=== PATIENT | male | born 1960 | race Caucasian/White ===

== ENCOUNTER 2016-11-30 07:54 | Day surgery (SDC) | payer OTHER ==
[~2016-11-30 07:54] MED LIST: EPINEPHrine 1:1000 1 MG/ML SDV ONE; Lidocaine 1%/Sod Bicarbonate in NS 8.4% 1 ML Syringe IV PRN; Ropivacaine 0.5% 5 MG/ML 30 ML SDV ONE; Sodium Chloride 0.9% 10 ML Syringe FLUSH PRN
[2016-11-30] MEDS ORDERED: fentaNYL 100 MCG/2 ML SDV ONE (08:06)
[2016-11-30] MEDS ORDERED: Midazolam 1 MG/ML 2 ML SDV ONE (08:07)
[2016-11-30] MEDS ORDERED: Lidocaine 1% 2 ML ONE (08:08)
[2016-11-30] MEDS: Lactated Ringers 1,000 ML IV SCH ×2 (08:20→12:20)
--- NOTE | 2016-11-30 08:22 | PCM.PREANE ---
Preanesthetic Assessment - Anesthesia/Transfusion/Family Hx Anesthesia History: Prior Anesthesia Without Reaction Family History of Anesthesia Reaction: No Transfusion History: No Prior Transfusion(s) - Review of Systems General: No Symptoms Pulmonary: No Symptoms Cardiovascular: No Symptoms Gastrointestinal: No symptoms Neurological: No Symptoms Other: Reports: None - Physical Assessment NPO Status Date: 11/29/16 NPO Status Time: 08:30 Pulse: 51 O2 Sat by Pulse Oximetry: 96 Respiratory Rate: 16 Blood Pressure: 145/75 Temperature: 36.1 C Height: 1.85 m Weight: 124.738 kg ASA Class: 2 Mental Status: Alert & Oriented x3 Airway Class: Mallampati = 1 Dentition: Reports: Normal Dentition, Broken Tooth/Teeth (back top right) Thyro-Mental Finger Breadths: 3 Mouth Opening Finger Breadths: 3 ROM/Head Extension: Full Lungs: Clear to auscultation, Normal respiratory effort Cardiovascular: Regular Rate, Regular Rhythm, No Murmurs - Lab Values: Laboratory Last Values MRSA (PCR) Negative 11/28/16 09:46 - Imaging/EKG Impressions: EKG SR with Left atrial abnormalities - Allergies Allergies/Adverse Reactions: Allergies Allergy/AdvReac Type Severity Reaction Status Date / Time No Known Allergies Allergy Verified 11/29/16 14:42 - Anesthesia Plan Pre-Op Medication Ordered: None - Acknowledgements Anesthesia Type Planned: General Anesthesia, Regional Block (right interscalene block for post-op pain control) Pt an Appropriate Candidate for the Planned Anesthesia: Yes Alternatives and Risks of Anesthesia Discussed w Pt/Guardian: Yes Pt/Guardian Understands and Agrees with Anesthesia Plan: Yes PreAnesthesia Questionnaire - Past Health History Medical/Surgical History: Denies Medical/Surgical History HEENT History: Reports: None Cardiovascular History: Reports: None Respiratory History: Reports: None Gastrointestinal History: Reports: None, GERD Genitourinary History: Reports: None DELIVERY ARCHITECT History: Reports: None Musculoskeletal History: Reports: Other (see below) Other Musculoskeletal History: biceps tendinitis, R shoulder sprain, R supraspintus tear, knee surgery Neurological History: Reports: None Psychiatric History: Reports: None Endocrine/Metabolic History: Reports: None Hematologic History: Reports: None Immunologic History: Reports: None Oncologic (Cancer) History: Reports: None Dermatologic History: Reports: None - Past Surgical History Head Surgeries/Procedures: Reports: None - SUBSTANCE USE Smoking Status *Q: Never Smoker Second Hand Smoke Exposure: No Days Per Week of Alcohol Use: 0 Number of Drinks Per Day: 0 Total Drinks Per Week: 0 Recreational Drug Use History: No - HOME MEDS Home Medications: Home Meds Cyclobenzaprine [Flexeril] 10 mg PO TID PRN #40 tablet 11/30/16 [Rx] Hydrocodone/Acetaminophen [[place] 5-325 Tablet] 1 - 2 each PO Q6H PRN #40 tablet 11/30/16 [Rx] - CURRENT (IN HOUSE) MEDS Current Meds: Current Medications Lactated Ringer's (Ringers, Lactated) 1,000 mls @ 125 mls/hr IV ASDIRECTED ANABEL Stop: 11/30/16 23:00 Lidocaine/Sodium Bicarbonate (Buffered Lidocaine 1% In Ns 8.4%) 0.25 ml IV ONETIME PRN PRN Reason: Prior to IV Start Stop: 11/30/16 18:00 Sodium Chloride (Saline Flush) 10 ml FLUSH ASDIRECTED PRN PRN Reason: Keep Vein Open Stop: 11/30/16 18:00 Discontinued Medications Epinephrine HCl (Adrenalin 1:1000) Confirm Administered Dose 1 mg .ROUTE .STK- MED ONE Stop: 11/30/16 07:51 Fentanyl (Sublimaze) Confirm Administered Dose 100 mcg .ROUTE .STK-MED ONE Stop: 11/30/16 08:07 Lidocaine HCl (Xylocaine-Mpf 1%) Confirm Administered Dose 2 mls @ as directed .ROUTE .STK-MED ONE Stop: 11/30/16 08:09 Midazolam HCl (Versed 1 Mg/Ml) Confirm Administered Dose 2 mg .ROUTE .STK-MED ONE Stop: 11/30/16 08:08 Ropivacaine (Naropin 0.5%) Confirm Administered Dose 30 ml .ROUTE .STK-MED ONE Stop: 11/30/16 07:51
[2016-11-30] MEDS ORDERED: Bupivacaine 0.25% 30 ML SDV ONE (08:46)
[2016-11-30] MEDS ORDERED: EPINEPHrine 1:1000 1 MG/ML 30 ML MDV ONE (09:20)
[2016-11-30] MEDS ORDERED: Lactated Ringers 1,000 ML ONE (09:35)
[2016-11-30] MEDS ORDERED: Ondansetron 4 MG/2 ML SDV ONE (09:35)
[2016-11-30] MEDS ORDERED: ceFAZolin 1 GM Vial ONE ×2 (09:35→09:51)
[2016-11-30] MEDS ORDERED: Rocuronium 50 MG/5 ML Vial ONE (09:35)
[2016-11-30] MEDS ORDERED: Propofol 200 MG/20 ML SDV ONE (09:35)
[2016-11-30] MEDS ORDERED: fentaNYL 250 MCG/5 ML SDV ONE (09:35)
[2016-11-30] MEDS ORDERED: fentaNYL 100 MCG/2 ML SDV IVPUSH PRN (10:37)
[2016-11-30] MEDS ORDERED: Ondansetron 4 MG/2 ML SDV IVPUSH PRN (10:37)
[2016-11-30] MEDS ORDERED: HYDROmorphone 0.5 MG/0.5 ML Syringe IVPUSH PRN (11:40)
--- NOTE | 2016-11-30 11:51 | PCM.POSTAN ---
POST ANESTHESIA ASSESSMENT - MENTAL STATUS Mental Status: alert, oriented - VITAL SIGNS Pulse Rate: 70 SaO2: 94 Resp Rate: 19 Blood Pressure: 156/92 Temperature: 36.6 C - RESPIRATORY Respiratory Status: respiratory rate WNL, airway patent, O2 saturation stable, supplemental oxygen - CARDIOVASCULAR CV Status: pulse rate WNL, blood pressure stable - GASTROINTESTINAL GI Status: no symptoms - PAIN Pain Score: 0 - POST OP HYDRATION Hydration Status: adequate & stable
--- NOTE | 2016-11-30 12:38 | PCM.SN ---
- Free Text/Narrative Note: Note: 11/30/2016 1100 151/79 50 98% 12 Surgeon and pt request post-op pain control for right shoulder surgery risk of block failure, facial numbness, site infection, and chronic pain discussed with pt and agreed to proceed. All standard monitors est. EKG, BP, Pulse Ox, 2ml O2, and 2ml versed, 2ml fentanyl pre-op dx. right shoulder pain post-op dx right shoulder arthroscopy pt for interscalene block placement all standard monitors est. pt ID time out performed IV sedation 2ml versed, 2ml fentanyl, 2L NC O2, sterile prep and drape of right neck and shoulder U/S placed with visualization of brachial plexus from clavicle to cricoid local skin infiltration 22ga. Stimplex A insulated needle visualized at brachial plexus nerve stimulator at .9 Mila Amps stop at .34 Mila Amps with good bicep twitch with 1ml NaCl and lose of twitch neg aspirations every 5ml of 0.5% ropivacaine and 1:200,000 epi total of 30ml injected all done with U/S guidance needle withdrawn no complications noted pt tolerated procedure well block settling in start procedure at 0848 end procedure at 0854 126/77 52 96% 15
[2016-11-30 15:02] VITALS: BP 124/69
--- NOTE | 2016-12-06 20:48 | PCM.OPNOTE ---
- General Post-Op/Procedure Note Date of Surgery/Procedure: 11/30/16 Operative Procedure(s): right shoulder video arthroscopy with rotator cuff repair, biceps tenotomy, and subacromial decompression Pre Op Diagnosis: right shoulder rotator cuff tear with biceps tendinopathy and subacromial impingement Post-Op Diagnosis: Same Anesthesia Technique: General ET tube, Regional block Primary Surgeon: Harjeet Gaines Anesthesia Provider: Garfield Juan Repairer Screen Crusher: Kiki Brand EBRichard in mLs: 5 Complications: None Condition: Good
--- NOTE | 2016-12-06 21:31 | OR ---
DATE OF OPERATION: 11/30/2016 SURGEON: Harjeet Gaines MD OPERATION PERFORMED: Right shoulder video arthroscopy, rotator cuff repair, biceps tenotomy, and subacromial decompression. PREOPERATIVE DIAGNOSIS: Right shoulder rotator cuff tear with biceps tendinopathy and subacromial impingement. POSTOPERATIVE DIAGNOSIS: Right shoulder rotator cuff tear with biceps tendinopathy, and subacromial impingement. ANESTHESIA: General endotracheal intubation with supraclavicular block. ANESTHESIA PROVIDER: Garfield Juan CRNA. SPORTS INTERN: Kiki Brand PA-C. ESTIMATED BLOOD LOSS: Less than 5 mL. COMPLICATIONS: None. CONDITION: Stable. DESCRIPTION OF PROCEDURE: The patient was identified in the preop holding area. Proper site was marked and identified by the surgeon. The patient was taken back to the operating theater, where after adequate anesthesia, the patient was placed in the lazy left lateral decubitus position. A wedge was placed posteriorly. All bony prominences were well padded. Right upper extremity was then sterilely prepped and draped in the usual sterile fashion. OR time-out was performed. The patient received 2 g IV Ancef and 12 pounds of traction was applied to the right upper extremity. Standard posterior portal incision was made. Scope trocar was introduced in glenohumeral joint. At this time, it was found be in adequate position. Spinal needle was used for creation of anterior portal. Biceps tendon was identified, which showed significant fraying as well as synovitis. There was no chondromalacia noted at the humeral head or the glenoid. There was noted to be a supraspinatus tear. The rest of the footprint was intact. The subscapularis tendon was intact. At this time, it was decided that secondary to the large amount of damage and synovitis as well as irreparable damage to the biceps tendon that it could not be tenodesed at this time. As much as the labrum and the biceps tendon was taken and a tenotomy was performed along with resection of the labral rim and this was debrided. At this time, it was found to be adequately released and was cut up in the groove. At this time, the scope was placed in subacromial space. A limited subacromial bursectomy was performed. The rotator cuff supraspinatus tear was noted. There was noted to be a medium size tear. At this time, there was noted to be a type 2/3 acromion and this was resected down to a smooth surface using a 4-0 darrin. Good bony bleeding bed was then made using the darrin for repair of the tendon. Next, one 4.75 SwiveLock anchor was placed medially, and 2 limbs of FiberWire and 2 limbs of FiberTape were then passed through the tendon. The 2 limbs of FiberWire were then tied for medial row repair and then the 2 strands of FiberTape were brought out laterally and another 4.75 mm Arthrex SwiveLock anchor was placed out laterally for a double-row repair and it was found to have adequate watertight repair with good samaritan of the footprint. At this time, excess saline was drained from the shoulder. A 3-0 nylon simple suture was used for closure of the skin. The patient was placed in a pillow sling and sterile dressing and tolerated the procedure well. MIMI /[id number]
== END 2016-11-30 14:35 | disposition home or self-care (01) ==
LOC: JD.SDS 07:54
PROVIDERS: ATTEND Orthopaedic Surgery
PROC: 0LM14ZZ Reattachment of Right Shoulder Tendon, Percutaneous Endoscopic Approach (ICD-10-PCS; principal; 2016-11-30)
PROC: 0RNJ4ZZ Release Right Shoulder Joint, Percutaneous Endoscopic Approach (ICD-10-PCS; 2016-11-30)
PROC: 0RBJ4ZZ Excision of Right Shoulder Joint, Percutaneous Endoscopic Approach (ICD-10-PCS; 2016-11-30)
DX: M75.101 Unspecified rotator cuff tear or rupture of right shoulder, not specified as traumatic (principal); M75.21 Bicipital tendinitis, right shoulder; M75.41 Impingement syndrome of right shoulder; S46.811A Strain of other muscles, fascia and tendons at shoulder and upper arm level, right arm, initial encounter
CPT/HCPCS: 29822; 29826; 29827; 87641; J0171; J0690; J2250; J2405; J2795; J3010; J7120; 01630; 64415; J2704; J3490

== ENCOUNTER 2019-08-20 06:00 | Inpatient (IN) | payer OTHER ==
--- NOTE | 2019-08-19 13:22 | PCM.PREANE ---
Preanesthetic Assessment - Anesthesia/Transfusion/Family Hx Anesthesia History: Prior Anesthesia Without Reaction Family History of Anesthesia Reaction: No Transfusion History: No Prior Transfusion(s) Intubation History: Unknown - Review of Systems General: No Symptoms Pulmonary: No Symptoms Cardiovascular: No Symptoms Gastrointestinal: No Symptoms (GERD on occasion) Neurological: No Symptoms Other: Reports: None - Physical Assessment NPO Status Date: 08/19/19 NPO Status Time: 19:00 Vital Signs: HR:54 BP:155/98 SAT:96% Temp:97.0 Resp:16 Height: 1.57 m Weight: 130 kg ASA Class: 2 Mental Status: Alert & Oriented x3 Airway Class: Mallampati = 2 Dentition: Reports: Normal Dentition, [place](s) Thyro-Mental Finger Breadths: 3 Mouth Opening Finger Breadths: 3 ROM/Head Extension: Full Lungs: Clear to Auscultation, Normal Respiratory Effort Cardiovascular: Regular Rate, Regular Rhythm, No Murmurs - Lab Values: All labs reviewed and noted and within acceptable ranges to proceed with scheduled procedure. - Imaging/EKG Impressions: CXR: negative EKG: SB rate=52, with nonspecific intraventricular conduction delay - Allergies Allergies/Adverse Reactions: Allergies Allergy/AdvReac Type Severity Reaction Status Date / Time No Known Allergies Allergy Verified 08/19/19 14:57 - Anesthesia Plan Pre-Op Medication Ordered: Other (Pre-Op Meds: lyrica, tylenol, oxycontin all p.o. at 0635) - Acknowledgements Anesthesia Type Planned: Spinal (With Right Adductor canal block under US guidance for post operative pain control requested by Dr. 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: Reports: None Musculoskeletal History: Reports: Other (See Below) Other Musculoskeletal History: biceps tendinitis, R shoulder sprain, R supraspintus tear, knee surgery Neurological History: Reports: None Psychiatric History: Reports: None Endocrine/Metabolic History: Reports: None Hematologic History: Reports: None Immunologic History: Reports: None Oncologic (Cancer) History: Reports: None Dermatologic History: Reports: None - Past Surgical History Musculoskeletal Surgical History: Reports: Knee Replacement - SUBSTANCE USE Smoking Status *Q: Never Smoker Second Hand Smoke Exposure: No Recreational Drug Use History: No - HOME MEDS Home Medications: Home Meds Cholecalciferol (Vitamin D3) [Vitamin D3] 5,000 unit PO DAILY 08/19/19 [History] - CURRENT (IN HOUSE) MEDS Current Meds: Current Medications Acetaminophen (Tylenol) 975 mg PO ONETIME ANABEL Stop: 08/20/19 12:00 Oxycodone HCl (Oxycontin) 10 mg PO ONETIME ANABEL Stop: 08/20/19 12:00 Pregabalin (Lyrica) 50 mg PO ONETIME ANABEL Stop: 08/20/19 12:00
[~2019-08-20 06:00] MED LIST changes: +Acetaminophen 325 MG Tab PO SCH; +EPINEPHrine 1 MG/ML SDV ONE; -EPINEPHrine 1:1000 1 MG/ML SDV ONE; +Lactated Ringers 1,000 ML IV SCH; +Lidocaine 1%/Sod Bicarbonate in NS 8.4% 1 ML Syringe IDERM PRN; -Lidocaine 1%/Sod Bicarbonate in NS 8.4% 1 ML Syringe IV PRN; +Pregabalin 25 MG Cap PO SCH; +oxyCODONE ER 10 MG TAB.ER PO SCH
[2019-08-20] MEDS ORDERED: Phenylephrine/Normal Saline 100 MCG/ML 10 ML Syringe ONE (06:20)
[2019-08-20] MEDS ORDERED: Lidocaine 1% 6 ML ONE ×2 (06:20→07:23)
[2019-08-20] MEDS ORDERED: Ondansetron 4 MG/2 ML SDV ONE (06:20)
[2019-08-20] MEDS ORDERED: Lactated Ringers 2,000 ML ONE (06:20)
[2019-08-20] MEDS ORDERED: Ketorolac 30 MG/ML SDV ONE (06:20)
[2019-08-20] MEDS ORDERED: ceFAZolin 1 GM Vial ONE ×2 (06:20→10:44)
[2019-08-20] MEDS ORDERED: Midazolam 1 MG/ML 2 ML SDV ONE (06:21)
[2019-08-20] MEDS ORDERED: Ketamine 500 mg/10 ML MDV ONE (06:21)
[2019-08-20] MEDS ORDERED: Propofol 200 MG/20 ML SDV ONE ×4 (06:21→09:50)
[2019-08-20] MEDS ORDERED: fentaNYL 100 MCG/2 ML SDV ONE ×2 (06:21→09:58)
[2019-08-20] MEDS ORDERED: Cyclobenzaprine 10 MG Tab PO PRN (06:41)
[2019-08-20] MEDS ORDERED: Morphine 2 MG/ML Syringe IVPUSH PRN (06:42)
[2019-08-20] MEDS ORDERED: Bisacodyl 5 MG Tab PO PRN (06:42)
[2019-08-20] MEDS ORDERED: Magnesium Hydroxide 400 MG/5 ML Susp 30 ML Cup PO PRN (06:42)
[2019-08-20] MEDS ORDERED: Ondansetron 4 MG/2 ML SDV IVPUSH PRN ×2 (06:42→07:47)
[2019-08-20] MEDS ORDERED: Naloxone 0.4 MG/ML SDV IVPUSH PRN (06:42)
[2019-08-20] MEDS ORDERED: Sennosides 8.6 MG Tab PO PRN (06:42)
[2019-08-20] MEDS ORDERED: Famotidine 20 MG Tab PO SCH (06:45)
[2019-08-20] MEDS ORDERED: ceFAZolin 2 GM in Premix Bag 1 BAG IV SCH (06:45)
[2019-08-20] MEDS ORDERED: Albuterol 0.083% 2.5 MG/3 ML Neb Soln NEB PRN (07:47)
[2019-08-20] MEDS ORDERED: ePHEDrine 50 MG/ML SDV IVPUSH PRN (07:47)
[2019-08-20] MEDS ORDERED: fentaNYL 100 MCG/2 ML SDV IVPUSH PRN (07:47)
[2019-08-20] MEDS ORDERED: diphenhydrAMINE 50 MG/ML SDV IVPUSH PRN (07:47)
[2019-08-20] MEDS ORDERED: HYDROmorphone 0.5 MG/0.5 ML Syringe IVPUSH PRN (07:47)
[2019-08-20] MEDS: Bupivacaine 0.25% 10 ML SDV ONE ×2 (07:48→10:22)
[2019-08-20] MEDS: Iodine/Sodium Iodide 2% Tincture 30 ML Bottle ONE ×2 (07:49→10:15)
[2019-08-20] MEDS: ceFAZolin 1 GM Vial ONE ×3 (07:49→10:19)
[2019-08-20] MEDS: Morphine 8 MG, EPINEPHrine 0.3 MG, Cefuroxime 750 MG, Ketorolac 30 MG, Sodium Chloride ... PRN ×10 (07:50→10:22)
[2019-08-20] MEDS: Vancomycin 1 GM SDV ONE ×2 (07:50→10:26)
[2019-08-20] MEDS ORDERED: Phenylephrine 1 MG in Sodium Chloride 0.9% 10 ML IV SCH (08:00)
[2019-08-20] MEDS ORDERED: HYDROmorphone 0.5 MG/0.5 ML Syringe ONE (09:42)
--- NOTE | 2019-08-20 11:18 | PCM.POSTAN ---
POST ANESTHESIA ASSESSMENT - MENTAL STATUS Mental Status: Alert - VITAL SIGNS Vital Signs: Last Vital Signs Temp 36.3 C 08/20/19 11:03 Pulse 54 L 08/20/19 06:10 Resp 14 08/20/19 11:15 BP 113/76 08/20/19 11:15 Pulse Ox 94 L 08/20/19 11:15 - RESPIRATORY Respiratory Status: Respiratory Rate WNL, Airway Patent, O2 Saturation Stable - CARDIOVASCULAR CV Status: Pulse Rate WNL, Blood Pressure Stable - GASTROINTESTINAL GI Status: No Symptoms - POST OP HYDRATION Hydration Status: Adequate & Stable
--- NOTE | 2019-08-20 11:24 | PCM.SN ---
- Free Text/Narrative Note: Right selective femoral nerve block at the adductor canal for post-procedure pain control under US guidance requested by Dr. Gaines. Time Out: 1134 Start: 1134 End: 1141 Chart reviewed. Consent signed. Questions answered. Appropriate monitors applied. Time out performed. Right mid-shaft femur identified with ultrasound, scanning medially of femur, the femoral artery in the adductor canal visualized , and the femoral nerve located laterally to the artery. The skin was prepped lateral to the ultrasound probe with chlorahexadine times two. The 21ga 4 insulated block needle was inserted under direct ultrasound guidance into the adductor canal. 25mL of 0.5% ropivacaine with 1:200,000 epinephrine was injected circumferentially around the nerve with intermittent negative aspiration noted. Patient tolerated the procedure well. Sterile technique noted along with sterile gloves, mask, and sterile probe cover. See picture on progress note and vital signs on nurses notes. Block completed in PACU. Amara Winston CRNA
--- NOTE | 2019-08-20 13:48 | CR ---
Right knee: AP and lateral views of the right knee were obtained. Comparison: No previous knee exam. Knee prosthesis is seen. Components are aligned. Soft tissue air is noted from the surgical procedure. Underlying bony structures are intact. Impression: 1. Satisfactory postop radiographic appearance of recently placed right knee prosthesis. Diagnostic code #2 This report was dictated in [place] Standard Time
[2019-08-20] MEDS: ceFAZolin 1 GM in Premix Bag 1 BAG IV SCH ×2 (14:31→22:42)
[2019-08-20] MEDS: ceFAZolin 2 GM in Premix Bag 1 BAG IV SCH ×2 (14:32→22:42)
[2019-08-20] MEDS: Acetaminophen/oxyCODONE 325-5 MG Tab PO PRN ×3 (14:36→22:49)
[2019-08-20] MEDS: Docusate Sodium 100 MG Cap PO SCH (20:33)
[2019-08-20] MEDS: Famotidine 20 MG Tab PO SCH (20:33)
[2019-08-20] MEDS: Ketorolac 15 MG/ML SDV IVPUSH PRN (22:41)
[2019-08-21] MEDS: ceFAZolin 1 GM in Premix Bag 1 BAG IV SCH (06:19)
[2019-08-21] MEDS: Ketorolac 15 MG/ML SDV IVPUSH PRN (06:19)
[2019-08-21] MEDS: ceFAZolin 2 GM in Premix Bag 1 BAG IV SCH (06:19)
[2019-08-21] MEDS: Acetaminophen/oxyCODONE 325-5 MG Tab PO PRN ×2 (06:31→11:16)
--- NOTE | 2019-08-21 07:08 | PCM48HPAN ---
Post Anesthesia Note - EVALUATION WITHIN 48HRS OF ANESTHETIC Vital Signs in Normal Range: Yes Patient Participated in Evaluation: Yes Respiratory Function Stable: Yes Airway Patent: Yes Cardiovascular Function Stable: Yes Hydration Status Stable: Yes Pain Control Satisfactory: Yes Nausea and Vomiting Control Satisfactory: Yes Mental Status Recovered: Yes Vital Signs: Last Vital Signs Temp 37.0 C 08/21/19 04:21 Pulse 60 08/21/19 04:21 Resp 18 08/21/19 04:21 BP 120/77 08/21/19 04:21 Pulse Ox 90 L 08/21/19 04:21
[2019-08-21] MEDS ORDERED: Cholecalciferol (Vitamin D3) 5,000 UNIT Tab PO SCH (09:00)
[2019-08-21] MEDS ORDERED: Aspirin 325 MG Tab.EC PO SCH (09:00)
[2019-08-21 09:03] VITALS: BP 133/58; PULSE 72
[2019-08-21] MEDS: Famotidine 20 MG Tab PO SCH (09:18)
[2019-08-21] MEDS: Docusate Sodium 100 MG Cap PO SCH (09:19)
--- NOTE | 2019-08-21 13:17 | PCM.SURGPN ---
- General Info Date of Service: 08/21/19 POD#: 1 Functional Status: Reports: Pain Controlled, Tolerating Diet, Ambulating, Urinating, Incentive Spirometry, Other (The pt states he is doing well.) - Patient Data Vitals - Most Recent: Last Vital Signs Temp 98.1 F 08/21/19 08:53 Pulse 72 08/21/19 08:53 Resp 16 08/21/19 08:53 BP 133/58 L 08/21/19 08:53 Pulse Ox 96 08/21/19 08:53 Weight - Most Recent: 294 lb 6.4 oz I&O - Last 24 Hours: Intake & Output 08/20/19 08/21/19 08/21/19 22:59 06:59 14:59 Intake Total 830 1650 240 Output Total 0 300 Balance 830 1350 240 Lab Results Last 24 Hrs: Laboratory Results - last 24 hr 08/21/19 08/21/19 Range/Units 06:50 06:50 WBC 6.67 (4.23-9.07) K/mm3 RBC 3.78 L (4.63-6.08) M/mm3 Hgb 11.6 L D (13.7-17.5) gm/dl Hct 36.0 L (40.1-51.0) % MCV 95.2 H D (79.0-92.2) fl MCH 30.7 (25.7-32.2) pg MCHC 32.2 (32.2-35.5) g/dl RDW Std Deviation 41.2 (35.1-43.9) fL Plt Count 165 (163-337) K/mm3 MPV 11.0 (9.4-12.3) fl Sodium 137 (136-145) mEq/L Potassium 4.1 (3.5-5.1) mEq/L Chloride 101 (98-107) mEq/L Carbon Dioxide 30 (21-32) mEq/L Anion Gap 10.1 (5-15) BUN 25 H (7-18) mg/dL Creatinine 1.3 (0.7-1.3) mg/dL Est Cr Clr Drug Dosing 67.44 mL/min Estimated GFR (MDRD) 56 (>60) mL/min BUN/Creatinine Ratio 19.2 H (14-18) Glucose 129 H (80-115) mg/dL Calcium 8.2 L (8.5-10.1) mg/dL Total Bilirubin 1.7 H (0.2-1.0) mg/dL AST 21 (15-37) U/L ALT 16 (16-63) U/L Alkaline Phosphatase 65 (46-116) U/L Total Protein 5.7 L (6.4-8.2) g/dl Albumin 2.8 L (3.4-5.0) g/dl Globulin 2.9 gm/dL Albumin/Globulin Ratio 1.0 (1-2) Med Orders - Current: Current Medications Albuterol (Proventil Neb Soln) 2.5 mg NEB ONETIME PRN PRN Reason: bronchodilation Aspirin (Ecotrin) 325 mg PO BID [facility] Last Admin: 08/21/19 09:20 Dose: 325 mg Bisacodyl (Dulcolax) 5 mg PO DAILY PRN PRN Reason: Constipation Cholecalciferol (Vitamin D3) 5,000 unit PO DAILY [facility] Last Admin: 08/21/19 09:19 Dose: 5,000 unit Cyclobenzaprine HCl (Flexeril) 10 mg PO TID PRN PRN Reason: Spasms Diphenhydramine HCl (Benadryl) 25 mg IVPUSH Q6H PRN PRN Reason: pruritis Docusate Sodium (Colace) 100 mg PO BID [facility] Last Admin: 08/21/19 09:19 Dose: 100 mg Famotidine (Pepcid) 20 mg PO Q12H [facility] Last Admin: 08/21/19 09:18 Dose: 20 mg Ketorolac Tromethamine (Toradol) 15 mg IVPUSH Q6H PRN PRN Reason: Pain Last Admin: 08/21/19 06:19 Dose: 15 mg Magnesium Hydroxide (Milk Of Magnesia) 30 ml PO BID PRN PRN Reason: Constipation Morphine Sulfate (Morphine) 2 mg IVPUSH Q2H PRN PRN Reason: Breakthrough Pain Naloxone HCl (Narcan) 0.1 mg IVPUSH Q5M PRN PRN Reason: Oversedation Ondansetron HCl (Zofran) 4 mg IVPUSH Q6H PRN PRN Reason: Nausea/Vomiting Oxycodone/Acetaminophen (Percocet 325-5 Mg) 1 - 2 tab PO Q4H PRN PRN Reason: Pain Last Admin: 08/21/19 11:16 Dose: 2 tab Senna (Senna) 8.6 mg PO BID PRN PRN Reason: Constipation Discontinued Medications Acetaminophen (Tylenol) 975 mg PO ONETIME [facility] Stop: 08/20/19 12:00 Last Admin: 08/20/19 06:17 Dose: 975 mg Bupivacaine HCl (Sensorcaine-Mpf 0.25%) Confirm Administered Dose 30 ml .ROUTE .STK-MED ONE Stop: 08/20/19 06:10 Last Admin: 08/20/19 10:22 Dose: 30 ml Cefazolin Sodium (Ancef) Confirm Administered Dose 2 gm .ROUTE .STK-MED ONE Stop: 08/20/19 06:10 Last Admin: 08/20/19 10:19 Dose: 2 gm Cefazolin Sodium (Ancef) Confirm Administered Dose 3 gm .ROUTE .STK-MED ONE Stop: 08/20/19 06:21 Cefazolin Sodium (Ancef) Confirm Administered Dose 3 gm .ROUTE .STK-MED ONE Stop: 08/20/19 10:45 Morphine Sulfate 8 mg/Epinephrine HCl 0.3 mg/Cefuroxime Sodium 750 mg/Ketorolac Tromethamine 30 mg/Sodium Chloride 27.9 ml 0 mg .XX ASDIRECTED PRN PRN Reason: Other Stop: 08/20/19 12:00 Last Admin: 08/20/19 10:22 Dose: 788.3 mg Ephedrine Sulfate (Ephedrine Sulfate) 5 mg IVPUSH ASDIRECTED PRN PRN Reason: Hypotension Stop: 08/20/19 12:00 Epinephrine HCl (Adrenalin) Confirm Administered Dose 1 mg .ROUTE .STK-MED ONE Stop: 08/19/19 13:52 Famotidine (Pepcid) 20 mg PO Q12H [facility] Last Admin: 08/20/19 15:48 Dose: Not Given Fentanyl (Sublimaze) Confirm Administered Dose 100 mcg .ROUTE .STK-MED ONE Stop: 08/20/19 06:22 Fentanyl (Sublimaze) 50 mcg IVPUSH Q5M PRN PRN Reason: Pain Stop: 08/20/19 12:00 Fentanyl (Sublimaze) Confirm Administered Dose 100 mcg .ROUTE .STK-MED ONE Stop: 08/20/19 09:59 Hydromorphone HCl (Dilaudid) 0.5 mg IVPUSH Q15M PRN PRN Reason: Pain (severe 7-10) Stop: 08/20/19 12:00 Hydromorphone HCl (Dilaudid) Confirm Administered Dose 0.5 mg .ROUTE .STK-MED ONE Stop: 08/20/19 09:43 Lactated Ringer's (Ringers, Lactated) 1,000 mls @ 125 mls/hr IV ASDIRECTED [facility] Stop: 08/20/19 23:00 Last Admin: 08/20/19 06:43 Dose: 125 mls/hr Lidocaine HCl (Xylocaine-Mpf 1%) Confirm Administered Dose 6 mls @ as directed .ROUTE .STK-MED ONE Stop: 08/20/19 06:21 Lactated Ringer's (Ringers, Lactated) Confirm Administered Dose 2,000 mls @ as directed .ROUTE .STK-MED ONE Stop: 08/20/19 06:21 Cefazolin Sodium/Dextrose 2 gm (/ Premix) 50 mls @ 100 mls/hr IV Q8H [facility] Stop: 08/20/19 23:14 Last Admin: 08/20/19 15:47 Dose: Not Given Cefazolin Sodium/Dextrose 2 gm (/ Premix) 50 mls @ 100 mls/hr IV Q8H [facility] Stop: 08/21/19 06:59 Last Admin: 08/21/19 06:19 Dose: 100 mls/hr Lidocaine HCl (Xylocaine-Mpf 1%) Confirm Administered Dose 6 mls @ as directed .ROUTE .ST-MED ONE Stop: 08/20/19 07:24 Cefazolin Sodium/Dextrose 1 gm (/ Premix) 50 mls @ 100 mls/hr IV Q8H [facility] Stop: 08/21/19 06:59 Last Admin: 08/21/19 06:19 Dose: 100 mls/hr Phenylephrine HCl 1 mg/ Sodium (Chloride) 10.1 mls @ 1 mls/sec IV TITRATE [facility]; Protocol Stop: 08/20/19 12:00 Iodine (Iodine 2% Mild Tincture) Confirm Administered Dose 30 ml .ROUTE .STK- MED ONE Stop: 08/20/19 06:10 Last Admin: 08/20/19 10:15 Dose: 18 ml Ketamine HCl (Ketalar) Confirm Administered Dose 500 mg .ROUTE .STK-MED ONE Stop: 08/20/19 06:22 Ketorolac Tromethamine (Toradol) Confirm Administered Dose 30 mg .ROUTE .ST- MED ONE Stop: 08/20/19 06:21 Lidocaine/Sodium Bicarbonate (Buffered Lidocaine 1% In Ns 8.4%) 0.25 ml IDERM ONETIME PRN PRN Reason: Prior to IV Start Stop: 08/20/19 18:00 Last Admin: 08/20/19 06:43 Dose: 0.25 ml Midazolam HCl (Versed 1 Mg/Ml) Confirm Administered Dose 2 mg .ROUTE .STK-MED ONE Stop: 08/20/19 06:22 Ondansetron HCl (Zofran) Confirm Administered Dose 4 mg .ROUTE .ST-MED ONE Stop: 08/20/19 06:21 Ondansetron HCl (Zofran) 4 mg IVPUSH ONETIME PRN PRN Reason: Nausea/Vomiting Stop: 08/20/19 12:00 Oxycodone HCl (Oxycontin) 10 mg PO ONETIME [facility] Stop: 08/20/19 12:00 Last Admin: 08/20/19 06:17 Dose: 10 mg Phenylephrine HCl (Phenylephrine In Ns 100 Mcg/Ml) Confirm Administered Dose 1 mg .ROUTE .ST-MED ONE Stop: 08/20/19 06:21 Pregabalin (Lyrica) 50 mg PO ONETIME [facility] Stop: 08/20/19 12:00 Last Admin: 08/20/19 06:17 Dose: 50 mg Propofol (Diprivan 20 Ml) Confirm Administered Dose 400 mg .ROUTE .ST-MED ONE Stop: 08/20/19 06:22 Propofol (Diprivan 20 Ml) Confirm Administered Dose 400 mg .ROUTE .ST-MED ONE Stop: 08/20/19 08:02 Propofol (Diprivan 20 Ml) Confirm Administered Dose 400 mg .ROUTE .STK-MED ONE Stop: 08/20/19 09:05 Propofol (Diprivan 20 Ml) Confirm Administered Dose 200 mg .ROUTE .STK-MED ONE Stop: 08/20/19 09:51 Ropivacaine (Naropin 0.5%) Confirm Administered Dose 30 ml .ROUTE .STK-MED ONE Stop: 08/19/19 13:52 Sodium Chloride (Saline Flush) 10 ml FLUSH ASDIRECTED PRN PRN Reason: Keep Vein Open Stop: 08/20/19 18:00 Tranexamic Acid (Cyklokapron) Confirm Administered Dose 1,000 mg .ROUTE .STK- MED ONE Stop: 08/20/19 06:10 Last Admin: 08/20/19 10:29 Dose: 1,000 mg Vancomycin HCl (Vancomycin) Confirm Administered Dose 1 gm .ROUTE .STK-MED ONE Stop: 08/20/19 06:10 Last Admin: 08/20/19 10:26 Dose: 1 gm - Exam Wound/Incisions: Dressing Dry and Intact General: Alert, Cooperative, No Acute Distress Lungs: Normal Respiratory Effort Extremities: Other (NVS intact for BLE. Troy's negative for BLE. Mod effusion right knee.) Sepsis Event Note - Evaluation Sepsis Screening Result: No Definite Risk - Focused Exam Vital Signs: Vital Signs Temp Pulse Resp BP Pulse Ox 08/21/19 08:53 98.1 F 72 16 133/58 L 96 08/21/19 04:21 98.6 F 60 18 120/77 90 L Date Exam was Performed: 08/21/19 Time Exam was Performed: 13:19 - Problem List Review Problem List Initiated/Reviewed/Updated: Yes - My Orders Last 24 Hours: Active Orders 24 hr Category Date Time Status Ready for Discharge [RC] PER UNIT ROUTINE Care 08/21/19 09:38 Active Aspirin [Ecotrin] Med 08/21/19 09:00 Active 325 mg PO BID Cholecalciferol (Vitamin D3) [Vitamin D3] Med 08/21/19 09:00 Active 5,000 unit PO DAILY Docusate Sodium [Colace] Med 08/20/19 21:00 Active 100 mg PO BID Famotidine [Pepcid] Med 08/20/19 21:00 Active 20 mg PO Q12H Medication Orders Albuterol (Proventil Neb Soln) 2.5 mg NEB ONETIME PRN PRN Reason: bronchodilation Aspirin (Ecotrin) 325 mg PO BID [facility] Last Admin: 08/21/19 09:20 Dose: 325 mg Bisacodyl (Dulcolax) 5 mg PO DAILY PRN PRN Reason: Constipation Cholecalciferol (Vitamin D3) 5,000 unit PO DAILY [facility] Last Admin: 08/21/19 09:19 Dose: 5,000 unit Cyclobenzaprine HCl (Flexeril) 10 mg PO TID PRN PRN Reason: Spasms Diphenhydramine HCl (Benadryl) 25 mg IVPUSH Q6H PRN PRN Reason: pruritis Docusate Sodium (Colace) 100 mg PO BID [facility] Last Admin: 08/21/19 09:19 Dose: 100 mg Admin: 08/20/19 20:33 Dose: 100 mg Famotidine (Pepcid) 20 mg PO Q12H [facility] Last Admin: 08/21/19 09:18 Dose: 20 mg Admin: 08/20/19 20:33 Dose: 20 mg Ketorolac Tromethamine (Toradol) 15 mg IVPUSH Q6H PRN PRN Reason: Pain Last Admin: 08/21/19 06:19 Dose: 15 mg Admin: 08/20/19 22:41 Dose: 15 mg Magnesium Hydroxide (Milk Of Magnesia) 30 ml PO BID PRN PRN Reason: Constipation Morphine Sulfate (Morphine) 2 mg IVPUSH Q2H PRN PRN Reason: Breakthrough Pain Naloxone HCl (Narcan) 0.1 mg IVPUSH Q5M PRN PRN Reason: Oversedation Ondansetron HCl (Zofran) 4 mg IVPUSH Q6H PRN PRN Reason: Nausea/Vomiting Oxycodone/Acetaminophen (Percocet 325-5 Mg) 1 - 2 tab PO Q4H PRN PRN Reason: Pain Last Admin: 08/21/19 11:16 Dose: 2 tab Admin: 08/21/19 06:31 Dose: 2 tab Admin: 08/20/19 22:49 Dose: 2 tab Admin: 08/20/19 18:53 Dose: 2 tab Admin: 08/20/19 14:36 Dose: 2 tab Senna (Senna) 8.6 mg PO BID PRN PRN Reason: Constipation - Assessment Assessment (Free Text/Narrative):: POD#1 - right knee hardware removal and right TKA - Plan Plan (Free Text/Narrative):: 1. Hgb 11.6. 2. 325mg ASA PO BID, frequent mobility, TEDs. 3. Discharge to home today. 4. Outpatient physical therapy. Dr. Gaines evaluated the pt today.
--- NOTE | 2019-08-21 13:19 | PCM.DCSUM1 ---
Discharge Summary - Hospital Course Brief History: Martha is a 59 yo male who underwent right knee hardware removal with TKA with Dr. Gaines on 08-20-2019. The procedure was completed under spinal anesthesia with MAC. The pt tolerated the procedure well and was admitted to the Medical-Surgical Unit. The pt received Ancef quoc-operatively. He participated in P.T. and O.T. and progressed well. He was allowed to WBAT and used a FWW for mobility. The pt's surgical wound was dressed with a WM dressing and remained clean and dry. On POD#1, the pt was started on 325mg ASA BID for VTE prophylaxis. The pt used TEDs and SCDs also. On POD#1, the pt's hemoglobin was 11.6. The pt's hospital course was uneventful. On POD#1, the pt was deemed appropriate for discharge to home with his . - Discharge Data Discharge Date: 08/21/19 Discharge Disposition: Home, Self-Care 01 Condition: Good - Referral to Home Health Primary Care Physician: Gabriel Franks PA-C - Patient Summary/Data Consults: Consultations 08/20/19 06:40 OT Evaluation and Treatment [CONS] Routine PT Evaluation and Treatment [CONS] Routine - Patient Instructions Diet: Usual Diet as Tolerated Activity: Apply Ice, As Tolerated, Elevate Extremity, Full Weight Bearing Driving: Do Not Drive Showering/Bathing: May Shower Wound/Incision Care: Keep Operative Site/Wound Site Clean and Dry, Do NOT Change Dressing Notify Provider of: Fever, Increased Pain, Swelling and Redness, Drainage, Nausea and/or Vomiting Other/Special Instructions: Please get up and moving around EVERY HOUR while awake. This helps to prevent blood clots. Please use your walker and have help with mobility as needed. Take a short walk in your home every hour while awake. Please take 325mg Aspirin TWICE daily. The aspirin is being used for blood clot prevention and not for pain management so please do not miss a dose of the medication. You could use a medication like Pepcid or Tagamet and a medication like Prilosec or Nexium to protect your stomach while you are using the aspirin. At home, please complete the exercises that you learned during the Hospital stay. Schedule for physical therapy. Use the pain medication as needed. The medication may cause drowsiness and constipation. Contact your primary care provider for instructions if you are constipated. You may use a stool softener like docusate sodium or Colace 100mg twice daily and/or a laxative like Miralax daily for constipation. Increase your water and fiber intake while you are using the pain medication. Discontinue use of the pain medication as soon as able. Please do not use other medications that may cause drowsiness (other pain medications, anxiety pills, cold medications, sleeping pills, etc) while using the prescription pain medication. Do not use alcohol while using the pain medication. You may use acetaminophen or Tylenol for pain management, however, please ensure you are not using over 4000 mg or 4 grams of acetaminophen per day from all sources. Your pain medication has 325mg of acetaminophen per tablet. At this time, please do not use ibuprofen (Motrin, Advil) or naproxen (Aleve) for pain management as you are using the aspirin. When the aspirin course is completed in 4 to 6 weeks, you could use ibuprofen or naproxen for pain management (if this is allowed by your primary care provider). Wear the ALLAN hose during the day and you may remove these at night. Elevate the limb to decrease swelling. Place ice to the area often. Place a towel between your skin and the blue pad. Use the incentive spirometer often. Take deep breaths throughout the day. Please keep the dressing in place until follow-up. Notify the Clinic if the dressing becomes saturated. Increase your protein intake while you are healing. If you have diabetes, please closely monitor your blood sugars and notify your primary care provider with abnormal values. Elevated blood sugars increases the risk of infection. Call the Clinic with questions or concerns - [phone]. - Discharge Plan *PRESCRIPTION DRUG MONITORING PROGRAM REVIEWED*: No *COPY OF PRESCRIPTION DRUG MONITORING REPORT IN PATIENT JORGE: No Prescriptions/Med Rec: Acetaminophen/oxyCODONE [Percocet 325-5 MG] 1 - 2 tab PO Q4H PRN #60 tablet PRN Reason: Pain Aspirin [Ecotrin EC] 325 mg PO BID #84 tab.ec Cyclobenzaprine [Flexeril] 10 mg PO BID PRN #40 tablet PRN Reason: Spasms Home Medications: Home Meds Cholecalciferol (Vitamin D3) [Vitamin D3] 5,000 unit PO DAILY 08/19/19 [History] Acetaminophen/oxyCODONE [Percocet 325-5 MG] 1 - 2 tab PO Q4H PRN #60 tablet [Rx] Aspirin [Ecotrin EC] 325 mg PO BID #84 tab.ec 08/21/19 [Rx] Cyclobenzaprine [Flexeril] 10 mg PO BID PRN #40 tablet 08/21/19 [Rx] Docusate Sodium [Colace] 100 mg PO BID cap 08/21/19 [Rx] Famotidine [Pepcid] 20 mg PO Q12H tablet 08/21/19 [Rx] Magnesium Hydroxide [Milk of Magnesia] 30 ml PO BID PRN cup 08/21/19 [Rx] Sennosides [Senna] 8.6 mg PO BID PRN tablet 08/21/19 [Rx] bisacodyL [Dulcolax] 5 mg PO DAILY PRN tablet 08/21/19 [Rx] Referrals: Kiki Brand PA-C [Physician Fishing Guide] - (Please follow up with TABITHA Araiza on the following dates August 27 at 12:15, September 02 at 3:45, and September 30 at 12:00.) - Discharge Summary/Plan Comment DC Time >30 min.: No - Patient Data Vitals - Most Recent: Last Vital Signs Temp 98.1 F 08/21/19 08:53 Pulse 72 08/21/19 08:53 Resp 16 08/21/19 08:53 BP 133/58 L 08/21/19 08:53 Pulse Ox 96 08/21/19 08:53 Weight - Most Recent: 294 lb 6.4 oz I&O - Last 24 hours: Intake & Output 08/20/19 08/21/19 08/21/19 22:59 06:59 14:59 Intake Total 830 1650 240 Output Total 0 300 Balance 830 1350 240 Lab Results - Last 24 hrs: Laboratory Results - last 24 hr 08/21/19 08/21/19 Range/Units 06:50 06:50 WBC 6.67 (4.23-9.07) K/mm3 RBC 3.78 L (4.63-6.08) M/mm3 Hgb 11.6 L D (13.7-17.5) gm/dl Hct 36.0 L (40.1-51.0) % MCV 95.2 H D (79.0-92.2) fl MCH 30.7 (25.7-32.2) pg MCHC 32.2 (32.2-35.5) g/dl RDW Std Deviation 41.2 (35.1-43.9) fL Plt Count 165 (163-337) K/mm3 MPV 11.0 (9.4-12.3) fl Sodium 137 (136-145) mEq/L Potassium 4.1 (3.5-5.1) mEq/L Chloride 101 (98-107) mEq/L Carbon Dioxide 30 (21-32) mEq/L Anion Gap 10.1 (5-15) BUN 25 H (7-18) mg/dL Creatinine 1.3 (0.7-1.3) mg/dL Est Cr Clr Drug Dosing 67.44 mL/min Estimated GFR (MDRD) 56 (>60) mL/min BUN/Creatinine Ratio 19.2 H (14-18) Glucose 129 H (80-115) mg/dL Calcium 8.2 L (8.5-10.1) mg/dL Total Bilirubin 1.7 H (0.2-1.0) mg/dL AST 21 (15-37) U/L ALT 16 (16-63) U/L Alkaline Phosphatase 65 (46-116) U/L Total Protein 5.7 L (6.4-8.2) g/dl Albumin 2.8 L (3.4-5.0) g/dl Globulin 2.9 gm/dL Albumin/Globulin Ratio 1.0 (1-2) Med Orders - Current: Current Medications Albuterol (Proventil Neb Soln) 2.5 mg NEB ONETIME PRN PRN Reason: bronchodilation Aspirin (Ecotrin) 325 mg PO BID [facility] Last Admin: 08/21/19 09:20 Dose: 325 mg Bisacodyl (Dulcolax) 5 mg PO DAILY PRN PRN Reason: Constipation Cholecalciferol (Vitamin D3) 5,000 unit PO DAILY [facility] Last Admin: 08/21/19 09:19 Dose: 5,000 unit Cyclobenzaprine HCl (Flexeril) 10 mg PO TID PRN PRN Reason: Spasms Diphenhydramine HCl (Benadryl) 25 mg IVPUSH Q6H PRN PRN Reason: pruritis Docusate Sodium (Colace) 100 mg PO BID [facility] Last Admin: 08/21/19 09:19 Dose: 100 mg Famotidine (Pepcid) 20 mg PO Q12H [facility] Last Admin: 08/21/19 09:18 Dose: 20 mg Ketorolac Tromethamine (Toradol) 15 mg IVPUSH Q6H PRN PRN Reason: Pain Last Admin: 08/21/19 06:19 Dose: 15 mg Magnesium Hydroxide (Milk Of Magnesia) 30 ml PO BID PRN PRN Reason: Constipation Morphine Sulfate (Morphine) 2 mg IVPUSH Q2H PRN PRN Reason: Breakthrough Pain Naloxone HCl (Narcan) 0.1 mg IVPUSH Q5M PRN PRN Reason: Oversedation Ondansetron HCl (Zofran) 4 mg IVPUSH Q6H PRN PRN Reason: Nausea/Vomiting Oxycodone/Acetaminophen (Percocet 325-5 Mg) 1 - 2 tab PO Q4H PRN PRN Reason: Pain Last Admin: 08/21/19 11:16 Dose: 2 tab Senna (Senna) 8.6 mg PO BID PRN PRN Reason: Constipation Discontinued Medications Acetaminophen (Tylenol) 975 mg PO ONETIME [facility] Stop: 08/20/19 12:00 Last Admin: 08/20/19 06:17 Dose: 975 mg Bupivacaine HCl (Sensorcaine-Mpf 0.25%) Confirm Administered Dose 30 ml .ROUTE .STK-MED ONE Stop: 08/20/19 06:10 Last Admin: 08/20/19 10:22 Dose: 30 ml Cefazolin Sodium (Ancef) Confirm Administered Dose 2 gm .ROUTE .STK-MED ONE Stop: 08/20/19 06:10 Last Admin: 08/20/19 10:19 Dose: 2 gm Cefazolin Sodium (Ancef) Confirm Administered Dose 3 gm .ROUTE .STK-MED ONE Stop: 08/20/19 06:21 Cefazolin Sodium (Ancef) Confirm Administered Dose 3 gm .ROUTE .STK-MED ONE Stop: 08/20/19 10:45 Morphine Sulfate 8 mg/Epinephrine HCl 0.3 mg/Cefuroxime Sodium 750 mg/Ketorolac Tromethamine 30 mg/Sodium Chloride 27.9 ml 0 mg .XX ASDIRECTED PRN PRN Reason: Other Stop: 08/20/19 12:00 Last Admin: 08/20/19 10:22 Dose: 788.3 mg Ephedrine Sulfate (Ephedrine Sulfate) 5 mg IVPUSH ASDIRECTED PRN PRN Reason: Hypotension Stop: 08/20/19 12:00 Epinephrine HCl (Adrenalin) Confirm Administered Dose 1 mg .ROUTE .STK-MED ONE Stop: 08/19/19 13:52 Famotidine (Pepcid) 20 mg PO Q12H [facility] Last Admin: 08/20/19 15:48 Dose: Not Given Fentanyl (Sublimaze) Confirm Administered Dose 100 mcg .ROUTE .STK-MED ONE Stop: 08/20/19 06:22 Fentanyl (Sublimaze) 50 mcg IVPUSH Q5M PRN PRN Reason: Pain Stop: 08/20/19 12:00 Fentanyl (Sublimaze) Confirm Administered Dose 100 mcg .ROUTE .STK-MED ONE Stop: 08/20/19 09:59 Hydromorphone HCl (Dilaudid) 0.5 mg IVPUSH Q15M PRN PRN Reason: Pain (severe 7-10) Stop: 08/20/19 12:00 Hydromorphone HCl (Dilaudid) Confirm Administered Dose 0.5 mg .ROUTE .STK-MED ONE Stop: 08/20/19 09:43 Lactated Ringer's (Ringers, Lactated) 1,000 mls @ 125 mls/hr IV ASDIRECTED [facility] Stop: 08/20/19 23:00 Last Admin: 08/20/19 06:43 Dose: 125 mls/hr Lidocaine HCl (Xylocaine-Mpf 1%) Confirm Administered Dose 6 mls @ as directed .ROUTE .STK-MED ONE Stop: 08/20/19 06:21 Lactated Ringer's (Ringers, Lactated) Confirm Administered Dose 2,000 mls @ as directed .ROUTE .STK-MED ONE Stop: 08/20/19 06:21 Cefazolin Sodium/Dextrose 2 gm (/ Premix) 50 mls @ 100 mls/hr IV Q8H [facility] Stop: 08/20/19 23:14 Last Admin: 08/20/19 15:47 Dose: Not Given Cefazolin Sodium/Dextrose 2 gm (/ Premix) 50 mls @ 100 mls/hr IV Q8H [facility] Stop: 08/21/19 06:59 Last Admin: 08/21/19 06:19 Dose: 100 mls/hr Lidocaine HCl (Xylocaine-Mpf 1%) Confirm Administered Dose 6 mls @ as directed .ROUTE .STK-MED ONE Stop: 08/20/19 07:24 Cefazolin Sodium/Dextrose 1 gm (/ Premix) 50 mls @ 100 mls/hr IV Q8H [facility] Stop: 08/21/19 06:59 Last Admin: 08/21/19 06:19 Dose: 100 mls/hr Phenylephrine HCl 1 mg/ Sodium (Chloride) 10.1 mls @ 1 mls/sec IV TITRATE [facility]; Protocol Stop: 08/20/19 12:00 Iodine (Iodine 2% Mild Tincture) Confirm Administered Dose 30 ml .ROUTE .STK- MED ONE Stop: 08/20/19 06:10 Last Admin: 08/20/19 10:15 Dose: 18 ml Ketamine HCl (Ketalar) Confirm Administered Dose 500 mg .ROUTE .STK-MED ONE Stop: 08/20/19 06:22 Ketorolac Tromethamine (Toradol) Confirm Administered Dose 30 mg .ROUTE .STK- MED ONE Stop: 08/20/19 06:21 Lidocaine/Sodium Bicarbonate (Buffered Lidocaine 1% In Ns 8.4%) 0.25 ml IDERM ONETIME PRN PRN Reason: Prior to IV Start Stop: 08/20/19 18:00 Last Admin: 08/20/19 06:43 Dose: 0.25 ml Midazolam HCl (Versed 1 Mg/Ml) Confirm Administered Dose 2 mg .ROUTE .STK-MED ONE Stop: 08/20/19 06:22 Ondansetron HCl (Zofran) Confirm Administered Dose 4 mg .ROUTE .STK-MED ONE Stop: 08/20/19 06:21 Ondansetron HCl (Zofran) 4 mg IVPUSH ONETIME PRN PRN Reason: Nausea/Vomiting Stop: 08/20/19 12:00 Oxycodone HCl (Oxycontin) 10 mg PO ONETIME ANABEL Stop: 08/20/19 12:00 Last Admin: 08/20/19 06:17 Dose: 10 mg Phenylephrine HCl (Phenylephrine In Ns 100 Mcg/Ml) Confirm Administered Dose 1 mg .ROUTE .STK-MED ONE Stop: 08/20/19 06:21 Pregabalin (Lyrica) 50 mg PO ONETIME ANABEL Stop: 08/20/19 12:00 Last Admin: 08/20/19 06:17 Dose: 50 mg Propofol (Diprivan 20 Ml) Confirm Administered Dose 400 mg .ROUTE .STK-MED ONE Stop: 08/20/19 06:22 Propofol (Diprivan 20 Ml) Confirm Administered Dose 400 mg .ROUTE .STK-MED ONE Stop: 08/20/19 08:02 Propofol (Diprivan 20 Ml) Confirm Administered Dose 400 mg .ROUTE .STK-MED ONE Stop: 08/20/19 09:05 Propofol (Diprivan 20 Ml) Confirm Administered Dose 200 mg .ROUTE .STK-MED ONE Stop: 08/20/19 09:51 Ropivacaine (Naropin 0.5%) Confirm Administered Dose 30 ml .ROUTE .STK-MED ONE Stop: 08/19/19 13:52 Sodium Chloride (Saline Flush) 10 ml FLUSH ASDIRECTED PRN PRN Reason: Keep Vein Open Stop: 08/20/19 18:00 Tranexamic Acid (Cyklokapron) Confirm Administered Dose 1,000 mg .ROUTE .STK- MED ONE Stop: 08/20/19 06:10 Last Admin: 08/20/19 10:29 Dose: 1,000 mg Vancomycin HCl (Vancomycin) Confirm Administered Dose 1 gm .ROUTE .STK-MED ONE Stop: 08/20/19 06:10 Last Admin: 08/20/19 10:26 Dose: 1 gm
--- NOTE | 2019-08-25 06:59 | PCM.OPNOTE ---
- General Post-Op/Procedure Note Date of Surgery/Procedure: 08/20/19 Operative Procedure(s): right total knee arthroplasty with left knee deep hardware removal Pre Op Diagnosis: right knee osteoarthrosis with painful hardware Post-Op Diagnosis: Same Anesthesia Technique: Local, MAC, Spinal Primary Surgeon: Harjeet Gaines Anesthesia Provider: Amara Winston Mineral Surveyor: Kiki Brand Mineral Surveyor: Mel Sosa EBL in mLs: 180 Complications: None Condition: Good Free Text/Narrative:: 7femur 7 tibia 13mm 35x10
--- NOTE | 2019-08-25 10:11 | OR ---
DATE OF OPERATION: 08/20/2019 SURGEON: Harjeet Gaines MD OPERATION PERFORMED: Right total knee arthroplasty with left knee deep hardware removal. PREOPERATIVE DIAGNOSIS: Right knee osteoarthrosis with painful hardware. POSTOPERATIVE DIAGNOSIS: Right knee osteoarthrosis with painful hardware. ANESTHESIA: Local MAC with spinal. ANESTHESIA PROVIDER: Amara Winston CRNA. ASSISTANTS: 1. Kiki Brand PA-C. 2. Mel Sosa LPN. ESTIMATED BLOOD LOSS: 180 mL. COMPLICATIONS: None. CONDITION: Stable. IMPLANTS: 1. Marshall size 7 cemented PS femur. 2. Hebert size 7 cemented universal tibial baseplate. 3. Marshall size 12 x 100 mm tibial stem with 8 mm offset. 4. Marshall size 13 mm PS X3 polyethylene. 5. Marshall size 35 x 10 mm cemented asymmetric patella. DESCRIPTION OF PROCEDURE: The patient was identified in the preop holding area. Proper site was marked and identified by the surgeon. The patient was taken back to the operating theater where, after adequate anesthesia, the patient's right lower extremity had a nonsterile tourniquet applied and was then sterilely prepped and draped in the usual sterile fashion. OR time-out was performed. The patient received 2 g IV Ancef. At this time, right lower extremity was exsanguinated. Tourniquet was insufflated to 250 mmHg. At this time, secondary to the patient's lateral hardware, the previous incision could not be utilized with the total knee arthroplasty, so at this time, I did a standard skin incision, then did a lateral parapatellar arthrotomy instead of a medial parapatellar arthrotomy. The patient had severe arthrofibrosis at the beginning of the case with only 10% to 15% degrees range of motion with severe arthrofibrosis, significant osteophytes. The patella was significantly difficult to retract medially secondary to the large osteophytes on it as well as on the femur and the previous scar tissue. At this time, I decided that we take the tibial hardware out first. There was noted to be significant bony overgrowth over the hardware. I did use an osteotome and a mallet to remove the bony overgrowth. At this time, the correct fence post driver was then utilized to remove all 5 of the screws. An osteotome as well as an elevator were then used to elevate the plate off the tibia. Rongeur was used to smooth out any rough patches. Attention was turned to the patella. At this time, the patella was able to finally get around medially to resect the medial osteophytes, which allowed for better retraction. Patella measured a 26 and was resected to a 15 for a 35 x 10 mm patella. I did have to free hand the drill holes as the guide would not work secondary to the lateral parapatellar approach instead of the medial parapatellar approach, but the button did still fit. At this time, the drill hole was then drilled for the intramedullary guide. It was very difficult to keep the patella out of the way for all of the guide secondary to the lateral parapatellar approach and the severe arthrofibrosis with only 50 degrees of flexion at this point. Drill hole was then drilled in the distal femur. The intramedullary flexible distal femoral cutting guide was then placed and 10 mm resected off the distal femur. Sizing guide was placed. It was found to be a size 7. Epicondylar axis holes were then drilled and the 4-in-1 cutting block was placed. Anterior-posterior and anterior and posterior chamfer cuts were then completed, found to be adequate. I did notch the femur around 4 to 5 mm at this time, but the rest of the femur was intact. Box cut was then completed for a size 7 and was found to be adequate. At this time, I was able to get a little bit more flexion, roughly 80 to 90 degrees secondary to removing some the posterior osteophytes with the femoral resection. Posterior retractors as well as mediolateral retractors were then placed for the tibia. A drill hole was placed in the center portion of the tibia and the straight intramedullary tibial cutting guide was then placed. This was pinned for 2 mm off the medial defect. This was then resected and attention was turned to removing posterior osteophytes as well as remaining meniscus. The patient at this point was then able to get to 135 to 140 degrees of flexion. It was noted to be tight on the medial side with extension and lateral side with flexion. At this time, I decided that we would try to see if the tibial resection was adequate. I then placed a flexible guide down and resected the tibia and noted that it did take more off the medial side. At this point, it did seem very well balanced in both flexion and extension. We then over-reamed for the 100 mm stem on the tibial side. I did use bone wax laterally in the previous screw holes so that cement would not extrude. Trial implants for size 7 were then placed with the offset guide. It was noted to be a 4 and 8 mm of offset. This was then set on the actual implants later on to the correct values. Once it was found to be tracking centrally, the patella was tracking centrally, it had full flexion and extension, was stable to varus and valgus stresses, cement was mixed on the back table. All cut surfaces were irrigated with pulse lavage irrigation with Ancef and then were completely dried. A bony plug was then placed distally in the femur so the cement would not extrude distally. Once the cement was ready and all implants were constructed, the size 7 base plate with 100 mm stem and the offset was then impacted in place. Excess cement was removed. The size 7 PS femur cemented into place. The 13 mm PS X3 polyethylene was then impacted into place. The patient's knee was brought into full extension. Excess cement was again removed. A 35 x 10 mm patella was cemented into place. At this time, 1 L dilute Betadine solution was irrigated through the knee along with 3 L pulse lavage irrigation with Ancef. Topical tranexamic acid and vancomycin powder were then placed. The cement had hardened at this point. A #2 barbed suture was used for closure of the lateral parapatellar arthrotomy. At this time, the tourniquet had been up for quite a while, so we did drop the tourniquet. At this point, for skin closure, 2-0 Vicryl was used as well as barbed 2-0 suture and then Prineo was used for the skin. The patient did have a Erica wound VAC applied and was sent to the PACU in stable condition. Please note, this case was significantly more difficult than a standard total knee arthroplasty secondary to the patient having the previous hardware, significant arthrofibrosis, the need for the lateral parapatellar approach, as well as removal of the hardware. MMODAL /[id number]
== END 2019-08-21 12:57 | disposition home or self-care (01) | DRG 468 ==
LOC: JD.SDS 06:00 → JD.MS 06:01
PROVIDERS: ADMIT Orthopaedic Surgery; ATTEND Orthopaedic Surgery
PROC: 0SRC0J9 Replacement of Right Knee Joint with Synthetic Substitute, Cemented, Open Approach (ICD-10-PCS; principal; 2019-08-20)
PROC: 0SPC0JZ Removal of Synthetic Substitute from Right Knee Joint, Open Approach (ICD-10-PCS; 2019-08-20)
DX: T84.84XA Pain due to internal orthopedic prosthetic devices, implants and grafts, initial encounter (principal); M17.11 Unilateral primary osteoarthritis, right knee; K21.9 Gastro-esophageal reflux disease without esophagitis; M75.21 Bicipital tendinitis, right shoulder; M75.101 Unspecified rotator cuff tear or rupture of right shoulder, not specified as traumatic; Z96.651 Presence of right artificial knee joint; Z98.890 Other specified postprocedural states
CPT/HCPCS: 01402; 36415; 64450; 73560-26-RT; 73560-RT; 80053; 85027; 94760; 97110-GP; 97116-GP; 97161-GP; 97165-GO; 97535-GO; A9270-GY; C1713; C1776; J0171; J0690; J0697; J1170; J1885; J2001; J2250; J2270; J2370; J2405; J2704; J2795; J3010; J3370; J3490; J7120

== ENCOUNTER 2021-04-28 12:43 | Emergency (ER) | payer OTHER ==
[2021-04-28] MEDS ORDERED: methylPREDNISolone Sodium Succinate 125 MG/2 ML SDV IVPUSH ONE (12:54)
[2021-04-28] MEDS ORDERED: Sodium Chloride 0.9% 10 ML Syringe FLUSH PRN (12:54)
[2021-04-28] MEDS ORDERED: diphenhydrAMINE 50 MG/ML SDV IVPUSH ONE (12:55)
[2021-04-28] MEDS ORDERED: Famotidine 20 MG/2 ML SDV IVPUSH ONE (12:55)
[2021-04-28 14:07] VITALS: BP 153/91; PULSE 50
--- NOTE | 2021-04-28 14:41 | EDM.PDOC ---
ED HPI GENERAL MEDICAL PROBLEM - General Chief Complaint: Allergic Reaction Stated Complaint: BEE STING TO TUNG SWOLLEN Time Seen by Provider: 04/28/21 12:52 Source of Information: Reports: Patient History Limitations: Reports: No Limitations - History of Present Illness INITIAL COMMENTS - FREE TEXT/NARRATIVE: The patient presents with a wasp sting to his tongue. He had some soda in his truck and the wasp was in there and he did not know. He was stung in the tongue and he has some swelling. He does not feel short of breath. He is not allergic to bee stings as far as he knows. Onset: Sudden Duration: Minutes: Location: Reports: Face (tongue) Quality: Reports: Burning Severity: Moderate Improves with: Reports: None Worsens with: Reports: None Associated Symptoms: Reports: No Other Symptoms tongue Pain Score (Numeric/FACES): 8 - Related Data Allergies Allergy/AdvReac Type Severity Reaction Status Date / Time No Known Allergies Allergy Verified 04/28/21 13:09 Home Meds: Home Meds predniSONE [Prednisone] 40 mg PO DAILY #10 tablet 04/28/21 [Rx] Past Medical History - Past Health History Medical/Surgical History: Denies Medical/Surgical History HEENT History: Reports: None Other HEENT History: WEARS GLASSES FOR DRIVING ONLY Cardiovascular History: Reports: None Respiratory History: Reports: None Gastrointestinal History: Reports: GERD Genitourinary History: Reports: None Other Genitourinary History: elevated 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 Musculoskeletal History: Reports: Arthritis, Other (See Below) Other Musculoskeletal History: biceps tendinitis, R shoulder sprain, R supraspintus tear, knee surgery Neurological History: Reports: None Psychiatric History: Reports: None Endocrine/Metabolic History: Reports: None Hematologic History: Reports: None Immunologic History: Reports: None Oncologic (Cancer) History: Reports: None Dermatologic History: Reports: None - Infectious Disease History Infectious Disease History: Reports: Chicken Pox - Past Surgical History Head Surgeries/Procedures: Reports: None Cardiovascular Surgical History: Reports: None Respiratory Surgical History: Reports: None GI Surgical History: Reports: Colonoscopy Male Surgical History: Reports: None Endocrine Surgical History: Reports: None Neurological Surgical History: Reports: None Musculoskeletal Surgical History: Reports: Knee Replacement Other Musculoskeletal Surgeries/Procedures:: bilateral partial knee replacements, rotator cuff repair Oncologic Surgical History: Reports: None Dermatological Surgical History: Reports: None Social & Family History - Family History Family Medical History: No Pertinent Family History - Tobacco Use Tobacco Use Status *Q: Never Tobacco User - Caffeine Use Caffeine Use: Reports: Soda, Tea ED ROS ALLERGIC REACTION - Review of Systems Review Of Systems: See Below Constitutional: Reports: No Symptoms HEENT: Reports: Other (tongue swelling) Respiratory: Reports: No Symptoms Cardiovascular: Reports: No Symptoms Endocrine: Reports: No Symptoms GI/Abdominal: Reports: No Symptoms : Reports: No Symptoms Musculoskeletal: Reports: No Symptoms ED EXAM GENERAL NO PERIP PULSE - Physical Exam Exam: See Below Exam Limited By: No Limitations General Appearance: Alert, No Apparent Distress Ears: Normal External Exam Nose: Normal Inspection Throat/Mouth: Other (Mild edema of he tongue) Head: Atraumatic, Normocephalic Neck: Normal Inspection, Supple, Non-Tender Respiratory/Chest: No Respiratory Distress, Lungs Clear, Normal Breath Sounds Cardiovascular: Regular Rate, Rhythm, No Edema, No Murmur GI/Abdominal: Soft, Non-Tender, No Organomegaly, No Mass Back Exam: Normal Inspection Extremities: Normal Inspection Course - Vital Signs Last Recorded V/S: Last Vital Signs Temp 98.6 F 04/28/21 13:06 Pulse 50 L 04/28/21 14:06 Resp 18 04/28/21 14:06 BP 153/91 H 04/28/21 14:06 Pulse Ox 95 04/28/21 14:06 - Orders/Labs/Meds Orders: Active Orders 24 hr Category Date Time Status Cardiac Monitoring [RC] . DIRECTED Care 04/28/21 12:54 Active Peripheral IV Care [RC] . DIRECTED Care 04/28/21 12:54 Active Sodium Chloride 0.9% [Saline Flush] Med 04/28/21 12:54 Active 10 ml FLUSH ASDIRECTED PRN Peripheral IV Insertion Adult [OM.PC] Stat Oth 04/28/21 12:54 Ordered Medication Orders Sodium Chloride (Sodium Chloride 0.9% 10 Ml Syringe) 10 ml FLUSH ASDIRECTED PRN PRN Reason: Keep Vein Open Last Admin: 04/28/21 13:03 Dose: 10 ml Documented by: JOANNE Meds: Medications Generic Name Dose Route Start Last Admin Trade Name Freq PRN Reason Stop Dose Admin Sodium Chloride 10 ml 04/28/21 12:54 04/28/21 13:03 Sodium Chloride 0.9% 10 Ml Syringe FLUSH 10 ml ASDIRECTED PRN Administration Keep Vein Open Discontinued Medications Generic Name Dose Route Start Last Admin Trade Name Mala PRN Reason Stop Dose Admin Diphenhydramine HCl 50 mg 04/28/21 12:55 04/28/21 13:03 Diphenhydramine 50 Mg/Ml Sdv IVPUSH 04/28/21 12:56 50 mg ONETIME ONE Administration Famotidine 20 mg 04/28/21 12:55 04/28/21 13:03 Famotidine 20 Mg/2 Ml Sdv IVPUSH 04/28/21 12:56 20 mg ONETIME ONE Administration Methylprednisolone Sodium Succinate 125 mg 04/28/21 12:54 04/28/21 13:03 Methylprednisolone Sodium Succinate 125 Mg/2 Ml Sdv IVPUSH 04/28/21 12:55 125 mg ONETIME ONE Administration - Re-Assessments/Exams Free Text/Narrative Re-Assessment/Exam: 04/28/21 14:40 I ordered an IV saline lock, solu-medrol 125mg IV, benadryl 50mg IV, and pepcid 20mg IV. He feels about the same. It looks like his tongue is less swollen. I feel it is safe to go home. I will get him on some prednisone, pepcid and benadryl. Departure - Departure Time of Disposition: 14:45 Disposition: Home, Self-Care 01 Condition: Good Clinical Impression: Bee sting Qualifiers: Encounter type: initial encounter Injury intent: accidental or unintentional Qualified Code(s): T63.441A - Toxic effect of venom of bees, accidental (unintentional), initial encounter - Discharge Information *PRESCRIPTION DRUG MONITORING PROGRAM REVIEWED*: Not Applicable *COPY OF PRESCRIPTION DRUG MONITORING REPORT IN PATIENT JORGE: Not Applicable Prescriptions: predniSONE [Prednisone] 40 mg PO DAILY #10 tablet Referrals: PCP,None [Primary Care Provider] - Additional Instructions: Take the prednisone daily for 5 days. Take pepcid 20mg daily for 7 days. Take benadryl 50g by mouth every 6 hours as needed for any allergy symptoms Please return if you are worse. There is a possibility that you are allergic to bees and wasps. Sepsis Event Note (ED) - Evaluation Sepsis Screening Result: No Definite Risk - Focused Exam Vital Signs: Vital Signs Temp Pulse Resp BP Pulse Ox 04/28/21 14:06 50 L 18 153/91 H 95 04/28/21 13:32 52 L 18 149/82 H 98 04/28/21 13:06 98.6 F 60 18 154/89 H 99 - My Orders Last 24 Hours: My Active Orders 04/28/21 12:54 Cardiac Monitoring [RC] . DIRECTED Peripheral IV Care [RC] . DIRECTED Sodium Chloride 0.9% [Saline Flush] 10 ml FLUSH ASDIRECTED PRN Peripheral IV Insertion Adult [OM.PC] Stat - Assessment/Plan Last 24 Hours: My Active Orders 04/28/21 12:54 Cardiac Monitoring [RC] . DIRECTED Peripheral IV Care [RC] . DIRECTED Sodium Chloride 0.9% [Saline Flush] 10 ml FLUSH ASDIRECTED PRN Peripheral IV Insertion Adult [OM.PC] Stat
== END 2021-04-28 15:30 | disposition home or self-care (01) ==
LOC: JD.ED 12:43
DX: T63.441A Toxic effect of venom of bees, accidental (unintentional), initial encounter (principal)
CPT/HCPCS: 96374; 96375; 99282; J1200; J2930; J3490

== ENCOUNTER 2024-02-25 13:14 | Emergency (ER) | payer MEDICARE, OTHER ==
[2024-02-25 14:10] LABS: BASOPHILS ABSOLUTE AUTO 0.1 K/mm3 (0.0-0.2); EOSINOPHILS ABSOLUTE AUTO 0.1 K/mm3 (0.0-0.4); EOSINOPHILS PERCENT AUTO 2.2 % (0.0-6.0); HEMATOCRIT 42.3 % (42.0-52.0); HEMOGLOBIN 14.8 gm/dl (14.0-18.0); IMMATURE GRAN ABSOLUTE AUTO 0.02 K/mm3 (0.00-0.05); IMMATURE GRAN PERCENT AUTO 0.4 % (0.0-0.4); LYMPHOCYTES ABSOLUTE AUTO 1.9 K/mm3 (1.0-4.8); LYMPHOCYTES PERCENT AUTO 36.6 % (24.0-44.0); MEAN CORPUSCULAR HEMOGLOBIN 31.9 pg (28.0-32.0); MEAN CORPUSCULAR VOLUME 91.2 fl (83.0-99.0); MEAN PLATELET VOLUME 10.8 fl (9.4-12.4); MONOCYTES ABSOLUTE AUTO 0.4 K/mm3 (0.0-0.8); MONOCYTES PERCENT AUTO 8.5 % (0.0-8.0); NEUTROPHILS ABSOLUTE AUTO 2.6 K/mm3 (1.8-7.7); NEUTROPHILS PERCENT AUTO 51.3 % (41.0-71.0); PLATELET COUNT,PLT 180 K/mm3 (150-400); RED BLOOD CELL COUNT 4.64 M/mm3 (4.52-5.90); WHITE BLOOD CELL COUNT,WBC 5.06 K/mm3 (3.9-11.3)
[2024-02-25 14:55] LABS: A/G RATIO 1.2 (1-2); ALBUMIN 3.7 g/dl (3.4-5.0); ANION GAP 12.7 (5-15); BILIRUBIN TOTAL 1.8 mg/dL (0.2-1.0); BUN/CREATININE RATIO 18.2 (14-18); CALCIUM 8.9 mg/dL (8.5-10.1); CREATININE 1.1 mg/dL (0.7-1.3); EST CRCL DRUG DOSING (CG) 75.66 mL/min; POTASSIUM,K 3.7 mEq/L (3.5-5.1); PROTEIN TOTAL,TP 6.8 g/dl (6.4-8.2)
[2024-02-25 19:47] VITALS: BP 148/80; PULSE 62
== END 2024-02-25 15:46 | disposition home or self-care (01) ==
LOC: JD.ED 13:14
DX: T65.891A Toxic effect of other specified substances, accidental (unintentional), initial encounter (principal)
CPT/HCPCS: 36415; 80053; 82375; 85025; 99283